=== PATIENT | female | born 1930 | race Caucasian/White ===

== ENCOUNTER 2019-03-08 14:51 | Emergency (ER) | payer BC, MEDICARE ==
[~2019-03-08] VITALS: Ht 172.7 cm; Wt 79.0 kg
[2019-03-08] MEDS ORDERED: DIAZEPAM 5 MG TABLET PO ONE (16:00)
[2019-03-08 16:05] VITALS: BP 135/70
[2019-03-08 16:08] LABS: BASOPHILS # (AUTO) 0.01 x10^3/uL (0-0.1); BASOPHILS % (AUTO) 0 % (0-1); EOSINOPHILS # (AUTO) 0.03 x10^3/uL (0-0.4); EOSINOPHILS % (AUTO) 0 % (1-7); LYMPHOCYTES # (AUTO) 1.14 x10^3/uL (1-3.4); LYMPHOCYTES % (AUTO) 14 % (22-44); MD NO; MEAN CORPUSCULAR HEMOGLOBIN 31.1 pg (27.0-34.8); MEAN CORPUSCULAR HGB CONC 32.8 g/dL (32.4-35.8); MEAN CORPUSCULAR VOLUME 94.6 fL (80-100); MEAN PLATELET VOLUME 8.1 fL (7.4-10.4); MONOCYTES # (AUTO) 0.16 x10^3/uL (0.2-0.8); MONOCYTES % (AUTO) 2 % (2-9); NEUTROPHILS # (AUTO) 6.69 x10^3/uL (1.8-6.8); NEUTROPHILS % (AUTO) 83 % (42-75); PLATELET COUNT 225 x10^3/uL (130-400); RED BLOOD COUNT 4.49 x10^6/uL (3.82-5.3); RED CELL DISTRIBUTION WIDTH 14.4 % (9.6-15.2)
[2019-03-08 16:20] LABS: ALANINE AMINOTRANSFERASE 20 U/L (12-78); ALBUMIN 3.6 g/dL (3.4-5.0); ANION GAP 6 mmol/L (5-15); CHLORIDE 107 mmol/L (98-107); CREATININE 1.45 mg/dL (0.55-1.02)
[2019-03-08 16:24] LABS: ALKALINE PHOSPHATASE 78 U/L (45-117); BILIRUBIN,TOTAL 0.4 mg/dL (0.2-1.0); TOTAL PROTEIN 7.8 g/dL (6.4-8.2); TROPONIN I < 0.015 ng/mL (0.000-0.045)
[2019-03-08] MEDS ORDERED: DIAZEPAM 5 MG TABLET ONE (17:43)
== END 2019-03-08 18:53 | disposition home or self-care (01) ==
LOC: ED 16:51
DX: R42 Dizziness and giddiness (principal); E78.00 Pure hypercholesterolemia, unspecified; I48.91 Unspecified atrial fibrillation
CPT/HCPCS: 36415; 70551; 80053; 84484; 85025; 99284

== ENCOUNTER 2019-03-28 16:00 | Observation (INO) | payer BC ==
[~2019-03-28] VITALS: Ht 162.6 cm; Wt 77.8 kg
--- NOTE | 2019-03-28 16:24 | NUR ---
Pt to room from bathroom via wheelchair, straight back per PA.
[2019-03-28] MEDS ORDERED: LEVO50TA5 PO (16:40)
[2019-03-28] MEDS ORDERED: BYSTOLIC (16:41)
[2019-03-28] MEDS ORDERED: ONDANSETRON 2MG/ML, 2ML ONE (16:48)
[2019-03-28] MEDS ORDERED: MECLIZINE CHEWABLE 25 MG TAB ONE (16:48)
--- NOTE | 2019-03-28 16:55 | NUR ---
PATIENT CAME THROUGH TRIAGE, STRAIGHT BACK TO ROOM. EKG DONE IN ROOM. THIS IS A 88 YO FEMALE COMING IN FOR N/V AND DIZZINESS STARTING AT 3PM SITTING IN RESTAURANT. PATIENT HAS HX OF VERTIGO. WAS SEEN HERE 3 WEEKS AGO FOR THE VERTIGO, THESE SYMPTOMS ARE STATED TO BE SIMILAR TO LAST TIME. PATIENT STATES "THIS TIME I'M THROWING UP MORE". PATIENT A&OX4, GCS 15, VSS, PERRLA. PIV ESTABLISHED. PATIENT MEDICATED PER EMAR, TOLERATED WELL. CALL LIGHT IN REACH, DENIES NEEDS AT THIS TIME
[2019-03-28] MEDS ORDERED: SODIUM CHLORIDE 0.9% 1,000 ML IV ONE (17:00)
[2019-03-28] MEDS ORDERED: ONDANSETRON 2MG/ML, 2ML IVPush ONE (17:00)
[2019-03-28] MEDS ORDERED: MECLIZINE CHEWABLE 25 MG TAB PO ONE (17:00)
--- NOTE | 2019-03-28 17:07 | NUR ---
BEDSIDE REPROT GIVEN TO KSENIA SORIANO. PLAN OF CARE DISCUSSED
[2019-03-28 17:08] LABS: BASOPHILS # (AUTO) 0.06 x10^3/uL (0-0.1); BASOPHILS % (AUTO) 1 % (0-1); EOSINOPHILS # (AUTO) 0.23 x10^3/uL (0-0.4); EOSINOPHILS % (AUTO) 3 % (1-7); LYMPHOCYTES # (AUTO) 2.69 x10^3/uL (1-3.4); LYMPHOCYTES % (AUTO) 29 % (22-44); MD NO; MEAN CORPUSCULAR HEMOGLOBIN 31.1 pg (27.0-34.8); MEAN CORPUSCULAR HGB CONC 33.1 g/dL (32.4-35.8); MEAN CORPUSCULAR VOLUME 94.1 fL (80-100); MEAN PLATELET VOLUME 8.6 fL (7.4-10.4); MONOCYTES # (AUTO) 0.32 x10^3/uL (0.2-0.8); MONOCYTES % (AUTO) 3 % (2-9); NEUTROPHILS # (AUTO) 6.14 x10^3/uL (1.8-6.8); NEUTROPHILS % (AUTO) 65 % (42-75); PLATELET COUNT 208 x10^3/uL (130-400); RED BLOOD COUNT 4.41 x10^6/uL (3.82-5.3); RED CELL DISTRIBUTION WIDTH 14.2 % (9.6-15.2)
[2019-03-28 17:12] LABS: ALANINE AMINOTRANSFERASE 18 U/L (12-78); ALBUMIN 3.7 g/dL (3.4-5.0); ANION GAP 10 mmol/L (5-15); CALCIUM 8.6 mg/dL (8.5-10.1); CHLORIDE 106 mmol/L (98-107); CREATININE 1.59 mg/dL (0.55-1.02)
[2019-03-28 17:16] LABS: ALKALINE PHOSPHATASE 75 U/L (45-117); BILIRUBIN,TOTAL 0.3 mg/dL (0.2-1.0); TOTAL PROTEIN 7.8 g/dL (6.4-8.2); TROPONIN I < 0.015 ng/mL (0.000-0.045)
[2019-03-28] MEDS ORDERED: SODIUM CHLORIDE FLUSH 10ML SYR IVF ONE (18:00)
--- NOTE | 2019-03-28 18:01 | NUR ---
TRIBUNAL MEMBER TRIED TO AMBULATE PT TO TRY AND US BATHROOM FOR UA. PT C/O INCREASED DIZZINESS WITH ANY MOVEMENT "ROOM SPINNING"
[2019-03-28] MEDS ORDERED: DIAZEPAM 5 MG TABLET PO PRN (19:30)
[2019-03-28] MEDS ORDERED: POLYETHYLENE GLYCOL 17 GM PACKET PO PRN (19:30)
[2019-03-28] MEDS ORDERED: BISACODYL 10 MG SUPP PR PRN (19:30)
[2019-03-28] MEDS ORDERED: MECLIZINE CHEWABLE 25 MG TAB PO PRN (19:30)
[2019-03-28] MEDS ORDERED: ACETAMINOPHEN 325 MG TABLET PO PRN (19:30)
[2019-03-28] MEDS ORDERED: ONDANSETRON 2MG/ML, 2ML IVPush PRN (19:30)
[2019-03-28 21:59] VITALS: BP 113/66
[2019-03-28] MEDS: SODIUM CHLORIDE FLUSH 10ML SYR IVF SCH (22:00)
[2019-03-29 01:41] VITALS: BP 128/72
[2019-03-29 02:31] LABS: MICROSCOPIC AUTO
[2019-03-29 02:32] LABS: CULTURE INDICATED? YES
[2019-03-29 05:06] LABS: ANION GAP 5 mmol/L (5-15); CALCIUM 7.8 mg/dL (8.5-10.1); CHLORIDE 112 mmol/L (98-107); CREATININE 1.25 mg/dL (0.55-1.02)
[2019-03-29] MEDS: LEVOTHYROXINE 50 MCG TABLET PO SCH (06:05)
[2019-03-29 06:58] VITALS: BP 112/64
[2019-03-29] MEDS: HEPARIN 5,000 UNITS/ML, 1ML SQ SCH ×3 (07:30→23:30)
[2019-03-29] MEDS: SENNA/DOCUSATE TABLET PO SCH (08:45)
[2019-03-29] MEDS: MECLIZINE CHEWABLE 25 MG TAB PO SCH ×3 (08:49→20:25)
[2019-03-29] MEDS: SODIUM CHLORIDE FLUSH 10ML SYR IVF SCH ×2 (08:49→20:26)
[2019-03-29 13:18] VITALS: BP 113/67
[2019-03-29] MEDS ORDERED: AMLO5TAB10 PO (16:44)
[2019-03-29] MEDS ORDERED: RIVA15TA PO (16:44)
[2019-03-29] MEDS ORDERED: NEBI10TA3 PO (16:44)
[2019-03-29] MEDS ORDERED: IRBE300T16 PO (16:44)
[2019-03-29 18:58] VITALS: BP 147/67
[2019-03-30 00:01] VITALS: BP 125/71
[2019-03-30 04:38] LABS: ALBUMIN 3.1 g/dL (3.4-5.0); ANION GAP 4 mmol/L (5-15); CALCIUM 8.2 mg/dL (8.5-10.1); CHLORIDE 111 mmol/L (98-107); CREATININE 1.18 mg/dL (0.55-1.02)
[2019-03-30 04:41] LABS: ALANINE AMINOTRANSFERASE 13 U/L (12-78); ALKALINE PHOSPHATASE 62 U/L (45-117); BILIRUBIN,TOTAL 0.4 mg/dL (0.2-1.0); TOTAL PROTEIN 6.7 g/dL (6.4-8.2)
[2019-03-30] MEDS: LEVOTHYROXINE 50 MCG TABLET PO SCH (06:08)
[2019-03-30] MEDS: HEPARIN 5,000 UNITS/ML, 1ML SQ SCH (06:09)
[2019-03-30 06:38] VITALS: BP 140/60
[2019-03-30] MEDS: SODIUM CHLORIDE FLUSH 10ML SYR IVF SCH (08:25)
[2019-03-30] MEDS: MECLIZINE CHEWABLE 25 MG TAB PO SCH (08:25)
[2019-03-30] MEDS: SENNA/DOCUSATE TABLET PO SCH (08:25)
[2019-03-30] MEDS ORDERED: MECL-85 PO (10:20)
== END 2019-03-30 12:00 | disposition home or self-care (01) ==
LOC: ED 16:42 → 3N 19:27 → INTOOBSV 19:27 → DCLOUNGE 03-30 11:28
PROVIDERS: ADMIT Internal Medicine; ATTEND Internal Medicine
DX: H81.10 Benign paroxysmal vertigo, unspecified ear (principal); I12.9 Hypertensive chronic kidney disease with stage 1 through stage 4 chronic kidney disease, or unspecified chronic kidney disease; N18.3 Chronic kidney disease, stage 3 (moderate); I48.20 Chronic atrial fibrillation, unspecified; D68.69 Other thrombophilia; G89.29 Other chronic pain; M54.5 Low back pain; E78.5 Hyperlipidemia, unspecified; R11.2 Nausea with vomiting, unspecified; M48.50XA Collapsed vertebra, not elsewhere classified, site unspecified, initial encounter for fracture; E78.00 Pure hypercholesterolemia, unspecified; E03.9 Hypothyroidism, unspecified; Z86.711 Personal history of pulmonary embolism; Z79.899 Other long term (current) drug therapy; Z66 Do not resuscitate
CPT/HCPCS: 36415; 73610; 80048; 80053; 81001; 84443; 84484; 85025; 87086; 96361; 96374; 97162; 99284; G0378; J2405; J7030; 70450; 93005

== ENCOUNTER 2019-04-24 17:48 | Inpatient (IN) | payer BC ==
[~2019-04-24] VITALS: Ht 165.1 cm; Wt 74.9 kg
[~2019-04-24 17:48] MED LIST: AMLO5TAB10 PO; BYSTOLIC; IRBE300T8 PO; LEVO50TA5 PO; MECL-85 PO; NEBI10TA3 PO; RIVA15TA PO
[2019-04-24] MEDS ORDERED: DIAZEPAM 5 MG TABLET ONE (18:28)
[2019-04-24] MEDS ORDERED: MECLIZINE CHEWABLE 25 MG TAB ONE (18:28)
[2019-04-24] MEDS ORDERED: MECLIZINE 12.5 MG TABLET PO PRN (18:30)
[2019-04-24] MEDS ORDERED: SODIUM CHLORIDE 0.9%, 500ML IVBOLUS ONE (18:30)
[2019-04-24] MEDS ORDERED: DIAZEPAM 5 MG TABLET PO ONE (18:30)
--- NOTE | 2019-04-24 18:48 | NUR ---
PT BIB EMS FOR INCREASED DIZZINES. PT STATES SHE WAS DIAGNOSED W STONES IN HER EARS CAUSING THE INCREASED DIZZINESS. PT HAS BEEN TAKING HOMEOPATHIC MEDICINE WHICH HAS HELPED. MEDICATED PER ORDERS, IVF INFUSING, PROVIDED WATER, WARM BLANKET. NO OTHER NEEDS AT THIS TIME
[2019-04-24 19:12] LABS: ALANINE AMINOTRANSFERASE 13 U/L (12-78); ALBUMIN 3.3 g/dL (3.4-5.0); ANION GAP 5 mmol/L (5-15); CALCIUM 8.6 mg/dL (8.5-10.1); CHLORIDE 110 mmol/L (98-107)
[2019-04-24 19:14] LABS: ALKALINE PHOSPHATASE 74 U/L (45-117); BASOPHILS # (AUTO) 0.03 x10^3/uL (0-0.1); BASOPHILS % (AUTO) 1 % (0-1); BILIRUBIN,TOTAL 0.3 mg/dL (0.2-1.0); EOSINOPHILS # (AUTO) 0.24 x10^3/uL (0-0.4); EOSINOPHILS % (AUTO) 4 % (1-7); LYMPHOCYTES # (AUTO) 1.52 x10^3/uL (1-3.4); LYMPHOCYTES % (AUTO) 23 % (22-44); MD NO; MEAN CORPUSCULAR HEMOGLOBIN 31.1 pg (27.0-34.8); MEAN CORPUSCULAR HGB CONC 33.5 g/dL (32.4-35.8); MEAN CORPUSCULAR VOLUME 92.9 fL (80-100); MEAN PLATELET VOLUME 8.2 fL (7.4-10.4); MONOCYTES # (AUTO) 0.41 x10^3/uL (0.2-0.8); MONOCYTES % (AUTO) 6 % (2-9); NEUTROPHILS # (AUTO) 4.41 x10^3/uL (1.8-6.8); NEUTROPHILS % (AUTO) 67 % (42-75); PLATELET COUNT 213 x10^3/uL (130-400); RED BLOOD COUNT 4.33 x10^6/uL (3.82-5.3); RED CELL DISTRIBUTION WIDTH 13.7 % (9.6-15.2); TOTAL PROTEIN 7.2 g/dL (6.4-8.2)
--- NOTE | 2019-04-24 19:38 | NUR ---
AMBUL[place] [facility] [place] RN. PT EXTREMLY DIZZY. VOIDED 300 ML. UA SENT. PROVIDED CRACKERS AND APPLE SAUCE
[2019-04-24] MEDS ORDERED: methylPREDNISolone SOD SUCC 125 MG/2 ML ONE (19:44)
[2019-04-24 19:46] LABS: MICROSCOPIC AUTO
[2019-04-24 19:57] LABS: CULTURE INDICATED? YES
[2019-04-24] MEDS ORDERED: methylPREDNISolone SOD SUCC 125 MG/2 ML IVPush ONE (20:00)
--- NOTE | 2019-04-24 20:50 | NUR ---
PT SLEEPING. NO FURTHER NEEDS AT THIS TIME. POC FOR ADMIT. REPORT TO SHERITA
[2019-04-24] MEDS: LIDODERM REMOVE PATCH NOTE XX SCH (21:06)
[2019-04-24] MEDS ORDERED: DOCUSATE 100 MG CAPSULE PO PRN (21:30)
[2019-04-24] MEDS ORDERED: hydrALAzine 20 MG/ML, 1ML IVPush PRN (21:30)
[2019-04-24] MEDS ORDERED: LIDODERM 5% PATCH TD PRN (21:30)
[2019-04-24] MEDS ORDERED: TRAZODONE 50MG TABLET PO PRN (21:30)
[2019-04-24] MEDS ORDERED: ONDANSETRON ODT 4 MG PO PRN (21:30)
[2019-04-24 22:29] VITALS: BP 154/77
[2019-04-24] MEDS ORDERED: DIAZEPAM 5 MG TABLET PO PRN (22:30)
[2019-04-25 01:36] VITALS: BP 115/64
[2019-04-25 06:12] LABS: ANION GAP 6 mmol/L (5-15); CALCIUM 8.8 mg/dL (8.5-10.1); CHLORIDE 110 mmol/L (98-107); CREATININE 1.25 mg/dL (0.55-1.02)
[2019-04-25 08:24] VITALS: BP 145/78
[2019-04-25] MEDS: MECLIZINE CHEWABLE 25 MG TAB PO SCH ×3 (09:36→21:13)
[2019-04-25] MEDS: LIDODERM REMOVE PATCH NOTE XX SCH (10:37)
[2019-04-25 14:03] VITALS: BP 135/65
[2019-04-25 19:26] VITALS: BP 101/59
[2019-04-26 00:46] VITALS: BP 121/68
[2019-04-26 06:11] LABS: ANION GAP 5 mmol/L (5-15); CALCIUM 8.3 mg/dL (8.5-10.1); CHLORIDE 110 mmol/L (98-107)
[2019-04-26 06:13] LABS: CREATININE 1.45 mg/dL (0.55-1.02)
[2019-04-26 08:20] VITALS: BP 162/76
[2019-04-26] MEDS: MECLIZINE CHEWABLE 25 MG TAB PO SCH ×3 (08:22→21:00)
[2019-04-26] MEDS: LEVOTHYROXINE 50 MCG TABLET PO SCH (08:46)
[2019-04-26] MEDS: IRBESARTAN 300 MG TABLET PO SCH (08:47)
[2019-04-26] MEDS: AMLODIPINE 5 MG TABLET PO SCH (08:47)
[2019-04-26] MEDS ORDERED: NEBIVOLOL HCL 10 MG PO SCH (09:00)
[2019-04-26] MEDS: LIDODERM REMOVE PATCH NOTE XX SCH (10:30)
[2019-04-26 13:37] VITALS: BP 125/72
[2019-04-26] MEDS: RIVAROXABAN 15 MG TABLET PO SCH (17:13)
[2019-04-26 17:18] VITALS: BP 154/82
[2019-04-26 17:42] LABS: TROPONIN I < 0.015 ng/mL (0.000-0.045)
[2019-04-26 19:41] VITALS: BP 109/66
[2019-04-27 02:00] VITALS: BP 134/61
[2019-04-27] MEDS: LEVOTHYROXINE 50 MCG TABLET PO SCH (05:51)
[2019-04-27 08:21] VITALS: BP 131/80
[2019-04-27] MEDS: LIDODERM REMOVE PATCH NOTE XX SCH (10:30)
[2019-04-27] MEDS: IRBESARTAN 300 MG TABLET PO SCH (11:21)
[2019-04-27] MEDS: AMLODIPINE 5 MG TABLET PO SCH (11:21)
[2019-04-27] MEDS: MECLIZINE CHEWABLE 25 MG TAB PO SCH ×3 (11:34→21:00)
[2019-04-27 12:00] VITALS: BP 124/72
[2019-04-27] MEDS: RIVAROXABAN 15 MG TABLET PO SCH (18:15)
[2019-04-27 19:34] VITALS: BP 126/72
[2019-04-28 01:30] VITALS: BP 130/74
[2019-04-28] MEDS: LEVOTHYROXINE 50 MCG TABLET PO SCH (06:05)
[2019-04-28 06:09] LABS: ANION GAP 7 mmol/L (5-15); CHLORIDE 110 mmol/L (98-107)
[2019-04-28 06:10] LABS: CREATININE 1.25 mg/dL (0.55-1.02)
[2019-04-28 06:54] VITALS: BP 129/52
[2019-04-28] MEDS: LIDODERM REMOVE PATCH NOTE XX SCH (10:30)
[2019-04-28] MEDS: IRBESARTAN 300 MG TABLET PO SCH (11:14)
[2019-04-28] MEDS: MECLIZINE CHEWABLE 25 MG TAB PO SCH ×3 (11:14→21:23)
[2019-04-28] MEDS: AMLODIPINE 5 MG TABLET PO SCH (11:16)
[2019-04-28 12:57] VITALS: BP 133/79
[2019-04-28 18:40] VITALS: BP 155/74
[2019-04-28] MEDS: RIVAROXABAN 15 MG TABLET PO SCH (18:50)
[2019-04-29 00:24] VITALS: BP 129/70
[2019-04-29] MEDS: LEVOTHYROXINE 50 MCG TABLET PO SCH (05:59)
[2019-04-29 08:36] VITALS: BP 119/74
[2019-04-29] MEDS: LIDODERM REMOVE PATCH NOTE XX SCH (10:30)
[2019-04-29] MEDS: IRBESARTAN 300 MG TABLET PO SCH (10:52)
[2019-04-29] MEDS: AMLODIPINE 5 MG TABLET PO SCH (10:52)
[2019-04-29] MEDS: MECLIZINE CHEWABLE 25 MG TAB PO SCH ×3 (10:59→23:27)
[2019-04-29 14:36] VITALS: BP 100/57
[2019-04-29] MEDS: RIVAROXABAN 15 MG TABLET PO SCH (18:38)
[2019-04-29 19:34] VITALS: BP 109/60
[2019-04-30 02:51] VITALS: BP 144/76
[2019-04-30] MEDS: LEVOTHYROXINE 50 MCG TABLET PO SCH (06:10)
[2019-04-30] MEDS: IRBESARTAN 300 MG TABLET PO SCH (09:02)
[2019-04-30] MEDS: AMLODIPINE 5 MG TABLET PO SCH (09:02)
[2019-04-30] MEDS: MECLIZINE CHEWABLE 25 MG TAB PO SCH ×3 (09:02→20:42)
[2019-04-30] MEDS: LIDODERM REMOVE PATCH NOTE XX SCH (10:30)
[2019-04-30 13:07] VITALS: BP 102/62
[2019-04-30] MEDS: RIVAROXABAN 15 MG TABLET PO SCH (16:32)
[2019-04-30 19:03] VITALS: BP 119/77
[2019-05-01 00:56] VITALS: BP 126/65
[2019-05-01] MEDS: LEVOTHYROXINE 50 MCG TABLET PO SCH (06:08)
[2019-05-01 07:56] VITALS: BP 130/73
[2019-05-01] MEDS: MECLIZINE CHEWABLE 25 MG TAB PO SCH ×3 (09:02→21:38)
[2019-05-01] MEDS: IRBESARTAN 300 MG TABLET PO SCH (09:02)
[2019-05-01] MEDS: AMLODIPINE 5 MG TABLET PO SCH (09:02)
[2019-05-01] MEDS: LIDODERM REMOVE PATCH NOTE XX SCH (09:03)
[2019-05-01 13:15] VITALS: BP 129/66
[2019-05-01] MEDS: RIVAROXABAN 15 MG TABLET PO SCH (17:49)
[2019-05-01 18:44] VITALS: BP 112/65
[2019-05-02 01:30] VITALS: BP 137/72
[2019-05-02] MEDS: LEVOTHYROXINE 50 MCG TABLET PO SCH (06:12)
[2019-05-02 07:01] VITALS: BP 132/73
[2019-05-02] MEDS: AMLODIPINE 5 MG TABLET PO SCH (10:18)
[2019-05-02] MEDS: MECLIZINE CHEWABLE 25 MG TAB PO SCH ×3 (10:18→21:16)
[2019-05-02] MEDS: IRBESARTAN 300 MG TABLET PO SCH (10:18)
[2019-05-02] MEDS: LIDODERM REMOVE PATCH NOTE XX SCH (10:30)
[2019-05-02 13:36] VITALS: BP 100/62
[2019-05-02] MEDS: RIVAROXABAN 15 MG TABLET PO SCH (17:23)
[2019-05-02 19:48] VITALS: BP 107/67
[2019-05-03 01:29] VITALS: BP 106/62
[2019-05-03] MEDS: LEVOTHYROXINE 50 MCG TABLET PO SCH (06:16)
[2019-05-03] MEDS: IRBESARTAN 300 MG TABLET PO SCH (08:39)
[2019-05-03] MEDS: AMLODIPINE 5 MG TABLET PO SCH (08:39)
[2019-05-03] MEDS: MECLIZINE CHEWABLE 25 MG TAB PO SCH ×3 (08:39→21:11)
[2019-05-03] MEDS: LIDODERM REMOVE PATCH NOTE XX SCH (08:45)
[2019-05-03 09:46] VITALS: BP 138/66
[2019-05-03 13:45] VITALS: BP 107/63
[2019-05-03] MEDS: RIVAROXABAN 15 MG TABLET PO SCH (16:04)
[2019-05-03 19:37] VITALS: BP 107/64
[2019-05-04 01:09] VITALS: BP 106/60
[2019-05-04] MEDS: LEVOTHYROXINE 50 MCG TABLET PO SCH (05:11)
[2019-05-04 07:19] VITALS: BP 119/70
[2019-05-04] MEDS: AMLODIPINE 5 MG TABLET PO SCH (08:58)
[2019-05-04] MEDS: IRBESARTAN 300 MG TABLET PO SCH (08:58)
[2019-05-04] MEDS: MECLIZINE CHEWABLE 25 MG TAB PO SCH ×3 (08:58→22:49)
[2019-05-04 13:04] VITALS: BP 119/70
[2019-05-04] MEDS: RIVAROXABAN 15 MG TABLET PO SCH (16:40)
[2019-05-04 18:49] VITALS: BP 121/66
[2019-05-05 01:19] VITALS: BP 129/70
[2019-05-05] MEDS: LEVOTHYROXINE 50 MCG TABLET PO SCH (05:55)
[2019-05-05 07:31] VITALS: BP 145/68
[2019-05-05] MEDS: IRBESARTAN 300 MG TABLET PO SCH (08:07)
[2019-05-05] MEDS: AMLODIPINE 5 MG TABLET PO SCH (08:07)
[2019-05-05] MEDS: MECLIZINE CHEWABLE 25 MG TAB PO SCH ×3 (08:07→20:02)
[2019-05-05 13:01] VITALS: BP 100/59
[2019-05-05] MEDS: RIVAROXABAN 15 MG TABLET PO SCH (16:28)
[2019-05-05 18:34] VITALS: BP 104/59
[2019-05-05 19:45] VITALS: BP 104/61
[2019-05-06 01:39] VITALS: BP 101/62
[2019-05-06] MEDS: LEVOTHYROXINE 50 MCG TABLET PO SCH (05:48)
[2019-05-06] MEDS ORDERED: NEBIVOLOL HCL 5 MG TABLET PO SCH (09:00)
[2019-05-06 09:10] VITALS: BP 105/60
[2019-05-06] MEDS: AMLODIPINE 5 MG TABLET PO SCH (09:11)
[2019-05-06] MEDS: IRBESARTAN 300 MG TABLET PO SCH (09:12)
[2019-05-06] MEDS: MECLIZINE CHEWABLE 25 MG TAB PO SCH ×3 (09:19→20:07)
[2019-05-06] MEDS: RIVAROXABAN 15 MG TABLET PO SCH (16:27)
[2019-05-06 19:02] VITALS: BP 100/56
[2019-05-06 20:05] VITALS: BP 94/61
[2019-05-06] MEDS: NEBIVOLOL HCL 5 MG TABLET PO SCH (20:07)
[2019-05-07 00:35] VITALS: BP 102/56
[2019-05-07] MEDS: LEVOTHYROXINE 50 MCG TABLET PO SCH (05:20)
[2019-05-07 08:16] VITALS: BP 130/70
[2019-05-07 11:08] VITALS: BP 113/66
[2019-05-07] MEDS: MECLIZINE CHEWABLE 25 MG TAB PO SCH ×4 (11:18→21:01)
[2019-05-07] MEDS: IRBESARTAN 300 MG TABLET PO SCH (11:20)
[2019-05-07] MEDS: AMLODIPINE 5 MG TABLET PO SCH (11:20)
[2019-05-07 15:35] VITALS: BP 129/64
[2019-05-07] MEDS: RIVAROXABAN 15 MG TABLET PO SCH (17:43)
[2019-05-07 20:06] VITALS: BP 93/49
[2019-05-07 20:15] VITALS: BP 96/59
[2019-05-07] MEDS: NEBIVOLOL HCL 5 MG TABLET PO SCH (21:00)
[2019-05-07] MEDS: ACETAMINOPHEN 325 MG TABLET PO PRN (21:01)
[2019-05-08 02:54] VITALS: BP 108/68
[2019-05-08] MEDS: LEVOTHYROXINE 50 MCG TABLET PO SCH (06:31)
[2019-05-08 08:55] VITALS: BP 125/66
[2019-05-08] MEDS: AMLODIPINE 5 MG TABLET PO SCH (09:31)
[2019-05-08] MEDS: IRBESARTAN 300 MG TABLET PO SCH (09:31)
[2019-05-08] MEDS: MECLIZINE CHEWABLE 25 MG TAB PO SCH ×3 (09:31→21:08)
[2019-05-08 15:31] VITALS: BP 107/64
[2019-05-08] MEDS: RIVAROXABAN 15 MG TABLET PO SCH (17:28)
[2019-05-08] MEDS: NEBIVOLOL HCL 5 MG TABLET PO SCH (20:42)
[2019-05-08 20:48] VITALS: BP 107/62
[2019-05-09 01:34] VITALS: BP 110/66
[2019-05-09] MEDS: LEVOTHYROXINE 50 MCG TABLET PO SCH (05:05)
[2019-05-09] MEDS: ACETAMINOPHEN 325 MG TABLET PO PRN (05:05)
[2019-05-09 06:40] VITALS: BP 111/70
[2019-05-09] MEDS: AMLODIPINE 5 MG TABLET PO SCH ×2 (09:00→11:15)
[2019-05-09] MEDS: IRBESARTAN 300 MG TABLET PO SCH ×2 (09:00→11:15)
[2019-05-09 10:00] VITALS: BP_SYST 108; BP_SYST 120; BP_SYST 124; BP_DIAS 47; BP_DIAS 56; BP_DIAS 57
[2019-05-09] MEDS: MECLIZINE CHEWABLE 25 MG TAB PO SCH (11:15)
[2019-05-09 13:18] VITALS: BP 124/64
== END 2019-05-09 14:54 | DRG 149 ==
LOC: ED 19:55 → EDIP 20:05 → ED 21:02 → 3N 22:10
PROVIDERS: ADMIT Internal Medicine; ATTEND Internal Medicine
DX: H81.10 Benign paroxysmal vertigo, unspecified ear (principal); N17.0 Acute kidney failure with tubular necrosis; D68.59 Other primary thrombophilia; E03.9 Hypothyroidism, unspecified; E78.5 Hyperlipidemia, unspecified; G89.29 Other chronic pain; I12.9 Hypertensive chronic kidney disease with stage 1 through stage 4 chronic kidney disease, or unspecified chronic kidney disease; N18.3 Chronic kidney disease, stage 3 (moderate); G62.9 Polyneuropathy, unspecified; M54.9 Dorsalgia, unspecified; I48.0 Paroxysmal atrial fibrillation; Z79.01 Long term (current) use of anticoagulants; Z86.711 Personal history of pulmonary embolism
CPT/HCPCS: 36415; 80048; 80053; 81001; 83735; 84100; 84443; 84484; 85025; 87086; 93005; 93880; 99285; G0378; Q0162; J2930; J7040

== ENCOUNTER → 2019-10-01 | Outpatient (CLI) | payer MEDICARE ==
[~2019-10-01] MED LIST changes: +REGADENOSON 0.4 MG/5 ML SYRINGE ONE
== END | disposition home or self-care (01) ==
LOC: CFH 06:55
PROVIDERS: ATTEND Internal Medicine Cardiovascular Disease
DX: I08.3 Combined rheumatic disorders of mitral, aortic and tricuspid valves (principal); I25.10 Atherosclerotic heart disease of native coronary artery without angina pectoris; I10 Essential (primary) hypertension
CPT/HCPCS: 78452; 93017; 93306; A9502; J2785

== ENCOUNTER → 2019-11-28 | Outpatient (CLI) | payer MEDICARE ==
[~2019-11-28] MED LIST changes: -REGADENOSON 0.4 MG/5 ML SYRINGE ONE
== END | disposition home or self-care (01) ==
LOC: RAD 16:15
PROVIDERS: ATTEND Internal Medicine
DX: M25.474 Effusion, right foot (principal); M79.89 Other specified soft tissue disorders